=== PATIENT | male | born 1955 | race Caucasian/White ===

== ENCOUNTER 2018-08-01 03:18 | Emergency (ER) | payer MEDICAID ==
[~2018-08-01] VITALS: Ht 180.3 cm; Wt 111.4 kg
[~2018-08-01 03:18] MED LIST: AMLO2.5T4 PO; CLON-527 PO; DIVA125T31 PO; LISI40TA4 PO; METF-436 PO; METH5TAB4 PO; QUET-1 PO; SIMV5TAB58 PO
[2018-08-01 03:22] VITALS: BP 167/107
--- NOTE | 2018-08-01 03:26 | NUR ---
WOUND FLUSHED W/ 600 ML NS, 3 GREGORY PLACED, PT DECLINED LOCAL ANESTHETIC. WOUND WRAPPED W/ GAUZE AND COBAN FOR PRESSURE. COBAN REMOVED BEFORE DISCHARGE. WOUND COVERED W/ GAUZE AND TAPE.
[2018-08-01] MEDS ORDERED: TETanus/Pertussis (Acell)/Diphther VAC/PF (Tdap-Adult) 0.5ml syringe IM ONE (03:35)
== END 2018-08-01 04:23 | disposition home or self-care (01) ==
LOC: EEVIPCON 03:20 → ER 03:20
DX: S51.811A Laceration without foreign body of right forearm, initial encounter (principal); E11.9 Type 2 diabetes mellitus without complications; G89.29 Other chronic pain; F41.9 Anxiety disorder, unspecified; F32.9 Major depressive disorder, single episode, unspecified; F29 Unspecified psychosis not due to a substance or known physiological condition; Z98.890 Other specified postprocedural states; Z79.899 Other long term (current) drug therapy; Z79.84 Long term (current) use of oral hypoglycemic drugs; W26.8XXA Contact with other sharp object(s), not elsewhere classified, initial encounter; Y93.89 Activity, other specified; Y92.488 Other paved roadways as the place of occurrence of the external cause; Y99.8 Other external cause status
CPT/HCPCS: 12002; 90471; 90715; 99283

== ENCOUNTER 2018-12-17 06:56 | Emergency (ER) | payer MEDICAID ==
[~2018-12-17] VITALS: Ht 180.3 cm; Wt 113.6 kg
[2018-12-17 07:12] VITALS: BP 149/89
[2018-12-17] MEDS ORDERED: gentamicin 0.1% topical ointment 15gm TP SCH (07:55)
[2018-12-17] MEDS ORDERED: ALBU18HF2 INH (08:03)
[2018-12-17] MEDS ORDERED: DOXY100C2 PO (08:03)
[2018-12-17] MEDS ORDERED: INHA1INH2 (08:03)
== END 2018-12-17 08:26 | disposition home or self-care (01) ==
LOC: ER 06:57
DX: S90.414A Abrasion, right lesser toe(s), initial encounter (principal); R60.0 Localized edema; B35.1 Tinea unguium; E11.42 Type 2 diabetes mellitus with diabetic polyneuropathy; I48.91 Unspecified atrial fibrillation; I10 Essential (primary) hypertension; G89.29 Other chronic pain; F12.90 Cannabis use, unspecified, uncomplicated; Z98.890 Other specified postprocedural states; Z79.899 Other long term (current) drug therapy; X58.XXXA Exposure to other specified factors, initial encounter; Y93.89 Activity, other specified; Y92.89 Other specified places as the place of occurrence of the external cause; Y99.9 Unspecified external cause status
CPT/HCPCS: 82948; 99283

== ENCOUNTER 2021-09-30 18:08 | Emergency (ER) | payer MEDICAID ==
[~2021-09-30] VITALS: Ht 182.9 cm; Wt 125.0 kg
[~2021-09-30 18:08] MED LIST changes: +AMA1T PO; -AMLO2.5T4 PO; +ATEN-169 PO; +ATI1T PO; -CLON-527 PO; -DIVA125T31 PO; +HYDR-3686 PO; -LISI40TA4 PO; +LYR25C PO; -METF-436 PO; -METH5TAB4 PO; +MIRT-67 PO; +PANT40TA54 PO; +POTA10CA44 PO; -QUET-1 PO; +QUET25TA36 PO; +RIVA20TA PO; +SIMV-341 PO; -SIMV5TAB58 PO; +TRAZ-256 PO; +VERA120T19 PO
[2021-09-30 19:10] LABS: EOSINOPHILS # (AUTO) 0.1 X10'3 (0-0.9); MONOCYTES # (AUTO) 0.5 X10'3 (0-0.9)
[2021-09-30 19:11] LABS: BASOPHILS # (AUTO) 0.1 X10'3 (0-0.2); LYMPHOCYTES # (AUTO) 2.8 X10'3 (1.1-4.8); MEAN CORPUSCULAR HEMOGLOBIN 28.3 PG (27.0-31.0); MEAN CORPUSCULAR HGB CONC 33.4 g/dL (33.0-36.5); NEUTROPHILS # (AUTO) 3.1 X10'3 (1.8-7.7); WHITE BLOOD COUNT 6.6 X10'3 (4.5-11.0)
[2021-09-30 19:24] LABS: ALANINE AMINOTRANSFERASE 26 U/L (12-78); ALBUMIN 3.7 G/DL (3.4-5.0); ALBUMIN/GLOBULIN RATIO 1.1 (1.1-1.5); ALKALINE PHOSPHATASE 69 IU/L (46-116); ANION GAP 15 (8-16); ASPARTATE AMINO TRANSFERASE 27 U/L (10-37); BILIRUBIN,TOTAL 0.8 MG/DL (0.1-1.0); BLOOD UREA NITROGEN 18 MG/DL (7-18); BUN/CREATININE RATIO 12.4 (5.4-32.0); CALCIUM 7.9 MG/DL (8.5-10.1); CHLORIDE 107 MMOL/L (99-107); CREATININE 1.45 MG/DL (0.60-1.10); ETHANOL 0.292 GM/DL (0.0-0.010); GLUCOSE 122 MG/DL (70-104); MAGNESIUM 1.7 MG/DL (1.5-2.4); POTASSIUM 3.7 MMOL/L (3.5-5.1); SODIUM 145 MMOL/L (135-145); TOTAL CARBON DIOXIDE 23.3 MMOL/L (24-32); eGFR 49 ML/MIN
[2021-09-30 19:29] LABS: BASOPHILS % (AUTO) 1.2 % (0-1); EOSINOPHILS % (AUTO) 1.8 % (0-6); HEMATOCRIT 45.8 % (42.0-52.0); HEMOGLOBIN 15.3 g/dl (14.0-17.9); LYMPHOCYTES % (AUTO) 41.9 % (21-51); MEAN CORPUSCULAR VOLUME 84.8 FL (78-98); MONOCYTES % (AUTO) 8.2 % (2-12); NEUTROPHILS % (AUTO) 46.9 % (42-75); PLATELET COUNT 227 X10'3 (140-440)
[2021-09-30 20:41] VITALS: BP 131/81
[2021-09-30] MEDS: diphenhydrAMINE 50 mg/ml inj IV ONE (22:55)
[2021-10-01] MEDS ORDERED: HYDR-3686 PO (19:42)
[2021-10-01] MEDS ORDERED: QUET25TA PO (19:42)
[2021-10-01] MEDS ORDERED: MIRT-88 PO (19:44)
[2021-10-01] MEDS ORDERED: PANT-47 PO (19:56)
[2021-10-01] MEDS ORDERED: SIMV-342 PO (19:56)
[2021-10-01] MEDS ORDERED: RIVA20TA PO (19:56)
[2021-10-01] MEDS ORDERED: VERA180T PO (19:56)
[2021-10-01] MEDS ORDERED: METF-900 PO (19:56)
[2021-10-01] MEDS ORDERED: AMLO5TAB4 PO (19:56)
[2021-10-07] MEDS ORDERED: ESCI5TAB PO (06:40)
== END 2021-09-30 22:56 | disposition home or self-care (01) ==
LOC: ER 18:09
DX: F10.129 Alcohol abuse with intoxication, unspecified (principal); E11.42 Type 2 diabetes mellitus with diabetic polyneuropathy; I48.91 Unspecified atrial fibrillation; I11.0 Hypertensive heart disease with heart failure; I50.9 Heart failure, unspecified; G89.29 Other chronic pain; F41.9 Anxiety disorder, unspecified; F31.9 Bipolar disorder, unspecified; F12.90 Cannabis use, unspecified, uncomplicated; Z98.890 Other specified postprocedural states; Z79.899 Other long term (current) drug therapy; Y90.0 Blood alcohol level of less than 20 mg/100 ml
CPT/HCPCS: 36415; 80053; 80320; 83735; 85025; 96374; 99284; J1200

== ENCOUNTER 2021-10-01 13:14 | Inpatient (IN) | payer MEDICAID ==
[~2021-10-01] VITALS: Ht 365.8 cm; Wt 118.6 kg
[2021-10-01 17:59] LABS: BASOPHILS # (AUTO) 0.1 X10'3 (0-0.2); BASOPHILS % (AUTO) 1.2 % (0-1); EOSINOPHILS % (AUTO) 0.5 % (0-6); HEMATOCRIT 45.7 % (42.0-52.0); HEMOGLOBIN 15.2 g/dl (14.0-17.9); LYMPHOCYTES # (AUTO) 1.6 X10'3 (1.1-4.8); LYMPHOCYTES % (AUTO) 21.5 % (21-51); MEAN CORPUSCULAR HGB CONC 33.3 g/dL (33.0-36.5); MEAN CORPUSCULAR VOLUME 84.3 FL (78-98); MEAN PLATELET VOLUME 8.5 FL (7.4-10.4); MONOCYTES # (AUTO) 0.6 X10'3 (0-0.9); NEUTROPHILS % (AUTO) 68.8 % (42-75); PLATELET COUNT 231 X10'3 (140-440); RED BLOOD COUNT 5.42 X10'6 (4.70-6.10); RED CELL DISTRIBUTION WIDTH 17.5 % (11.5-14.5); WHITE BLOOD COUNT 7.2 X10'3 (4.5-11.0)
[2021-10-01 18:17] LABS: ALANINE AMINOTRANSFERASE 29 U/L (12-78); ALBUMIN 4.4 G/DL (3.4-5.0); ALBUMIN/GLOBULIN RATIO 1.2 (1.1-1.5); ALKALINE PHOSPHATASE 73 IU/L (46-116); ANION GAP 19 (8-16); ASPARTATE AMINO TRANSFERASE 33 U/L (10-37); BILIRUBIN,TOTAL 1.3 MG/DL (0.1-1.0); BLOOD UREA NITROGEN 20 MG/DL (7-18); BUN/CREATININE RATIO 11.4 (5.4-32.0); CALCIUM 8.5 MG/DL (8.5-10.1); CHLORIDE 103 MMOL/L (99-107); CREATININE 1.75 MG/DL (0.60-1.10); GLUCOSE 165 MG/DL (70-104); POTASSIUM 4.2 MMOL/L (3.5-5.1); SODIUM 142 MMOL/L (135-145); TOTAL CARBON DIOXIDE 19.7 MMOL/L (24-32); TOTAL PROTEIN 8.1 G/DL (6.4-8.2); eGFR 39 ML/MIN
[2021-10-01 18:26] LABS: ETHANOL 0.186 GM/DL (0.0-0.010)
--- NOTE | 2021-10-01 18:45 | NUR ---
The patient to bed 25 from the ER lobby for a mental health evaluation. He is yelling out that he wants ativan. His BA is 0.186. He is rambling and unable to stay on topic to answer questions. He reports he is a patient of Dr. Ro.
[2021-10-01 18:48] LABS: URINE AMPHETAMINE SCREEN NEGATIVE (Neg); URINE BARBITUATE SCREEN NEGATIVE (Neg); URINE BENZODIAZEPINES SCREEN NEGATIVE (Neg); URINE CANNABINOID SCREEN NEGATIVE (Neg); URINE COCAINE SCREEN NEGATIVE (Neg); URINE METHADONE SCREEN NEGATIVE (Neg); URINE OPIATE SCREEN NEGATIVE (Neg); URINE PHENCYCLIDINE SCREEN NEGATIVE (Neg)
[2021-10-01] MEDS ORDERED: phenobarbital sod 130mg/ml inj. IV ONE ×3 (18:50→20:25)
[2021-10-01] MEDS ORDERED: ringers solution, lacted 1,000 ML IV ONE ×2 (18:50→22:00)
[2021-10-01] MEDS ORDERED: HYDR-3686 PO (19:42)
[2021-10-01] MEDS ORDERED: QUET25TA PO (19:42)
[2021-10-01] MEDS ORDERED: MIRT-88 PO (19:44)
[2021-10-01] MEDS ORDERED: VERA180T PO (19:56)
[2021-10-01] MEDS ORDERED: RIVA20TA PO (19:56)
[2021-10-01] MEDS ORDERED: AMLO5TAB4 PO (19:56)
[2021-10-01] MEDS ORDERED: SIMV-342 PO (19:56)
[2021-10-01] MEDS ORDERED: METF-900 PO (19:56)
[2021-10-01] MEDS ORDERED: PANT-47 PO (19:56)
--- NOTE | 2021-10-01 19:59 | NUR ---
The patient currently appears to be sleeping
--- NOTE | 2021-10-01 19:59 | NUR ---
FAMILY CONTACTS: DAUGHTER KYLEE [phone] NISHAVILMA ONALASKA [phone]
--- NOTE | 2021-10-01 20:25 | NUR ---
PT WAS MOVED FROM OVERFLOW TO ER BED 14 FOR MONITORING. PT IS TACHYCARDIC AND TREMULOUS
[2021-10-01] MEDS ORDERED: diltiazem 5mg/ml 5ml inj. IV ONE (22:05)
--- NOTE | 2021-10-01 22:23 | NUR ---
PT WAS GIVEN DOSE OF CARDIZEM FOR POSSIBLE RAPID A FIB, 0.25MG/KG IV. PT'S HEART RATE DECREASING.
[2021-10-01] MEDS ORDERED: LORazepam 2 mg/ml vial IV ONE (22:30)
[2021-10-01] MEDS ORDERED: thiamine 100mg/ml 2ml inj. IV ONE (22:55)
--- NOTE | 2021-10-01 23:11 | NUR ---
PT STILL SHAKY AFTER ATIVAN DOSE
--- NOTE | 2021-10-01 23:11 | NUR ---
DR ORTIZ IS IN ROOM SPEAKING WITH PT FOR ADMISSION
[2021-10-01] MEDS ORDERED: potassium CL 10mEq/100ml bag 100 ML IV PRN (23:35)
[2021-10-01] MEDS ORDERED: acetaminophen 325mg tablet PO PRN (23:35)
[2021-10-01] MEDS ORDERED: magnesium hydroxide 30ml (MOM) UD suspension PO PRN (23:35)
[2021-10-01] MEDS ORDERED: POTASSIUM BICARB 20meq eff tab 20 MEQ TABLET.EFF PO PRN ×2 (23:35)
[2021-10-01] MEDS ORDERED: mag hydrox/Alum hydrox/simeth 30ml oral suspension PO PRN (23:35)
[2021-10-01] MEDS ORDERED: magnesium Cl slow-release 64mg tablet PO PRN (23:35)
[2021-10-01] MEDS ORDERED: ondansetron/PF 4mg/2ml inj IV PRN (23:35)
[2021-10-01] MEDS ORDERED: magnesium 4gm in 100ml NS 100 ML IV PRN (23:35)
[2021-10-01] MEDS ORDERED: magnesium 2GM in 50ml NS 50 ML IV PRN (23:35)
[2021-10-02] LABS: MAGNESIUM 1.3 MG/DL (1.5-2.4); POTASSIUM 3.9 MMOL/L (3.5-5.1)
[2021-10-02] MEDS: LORazepam 2 mg/ml vial IV PRN ×6 (00:35→22:16)
[2021-10-02] MEDS: normal saline 1000ml 1,000 ML IV SCH (00:35)
[2021-10-02] MEDS: diltiazem-NS 100mg/100ml 100 ML IV SCH ×2 (00:35→18:31)
--- NOTE | 2021-10-02 01:25 | NUR ---
pt was given 4 mg ativan for agitation, restlessness, still moving on gurney
--- NOTE | 2021-10-02 02:52 | NUR ---
PT NOW DOZING AFTER ATIVAN DOSE AT 0220.
[2021-10-02] MEDS: K and/or MAG REPLACEMENT MC SCH ×2 (03:09→20:00)
--- NOTE | 2021-10-02 04:30 | NUR ---
PT RESTING QUIETLY ON GURNEY, NO LONGER RESTLESS
--- NOTE | 2021-10-02 05:58 | NUR ---
PT APPEARS TO HAVE BRIEF EPISODES OF SLEEP APNEA, SAT 90% ON RA. PT WAS PUT ON O2 AT 2 LPM VIA N/C. PT AWAKENED BRIEFLY DURING NURSING CARE, REMAINS DROWSY.
[2021-10-02 06:59] LABS: BASOPHILS % (AUTO) 0.8 % (0-1); EOSINOPHILS # (AUTO) 0.1 X10'3 (0-0.9); EOSINOPHILS % (AUTO) 2.4 % (0-6); HEMATOCRIT 38.4 % (42.0-52.0); LYMPHOCYTES # (AUTO) 1.1 X10'3 (1.1-4.8); LYMPHOCYTES % (AUTO) 18.6 % (21-51); MEAN CORPUSCULAR HEMOGLOBIN 28.5 PG (27.0-31.0); MEAN CORPUSCULAR HGB CONC 33.9 g/dL (33.0-36.5); MEAN CORPUSCULAR VOLUME 84.1 FL (78-98); MONOCYTES # (AUTO) 0.6 X10'3 (0-0.9); MONOCYTES % (AUTO) 10.4 % (2-12); NEUTROPHILS % (AUTO) 67.8 % (42-75); PLATELET COUNT 149 X10'3 (140-440); RED BLOOD COUNT 4.56 X10'6 (4.70-6.10); RED CELL DISTRIBUTION WIDTH 16.8 % (11.5-14.5); WHITE BLOOD COUNT 5.9 X10'3 (4.5-11.0)
[2021-10-02 07:48] LABS: ALANINE AMINOTRANSFERASE 24 U/L (12-78); ALBUMIN 3.5 G/DL (3.4-5.0); ALBUMIN/GLOBULIN RATIO 1.1 (1.1-1.5); ALKALINE PHOSPHATASE 56 IU/L (46-116); ANION GAP 16 (8-16); ASPARTATE AMINO TRANSFERASE 29 U/L (10-37); BILIRUBIN,TOTAL 2.3 MG/DL (0.1-1.0); BLOOD UREA NITROGEN 14 MG/DL (7-18); BUN/CREATININE RATIO 11.7 (5.4-32.0); CALCIUM 7.9 MG/DL (8.5-10.1); CHLORIDE 103 MMOL/L (99-107); GLUCOSE 99 MG/DL (70-104); MAGNESIUM 2.3 MG/DL (1.5-2.4); POTASSIUM 3.7 MMOL/L (3.5-5.1); SODIUM 142 MMOL/L (135-145); TOTAL CARBON DIOXIDE 23.3 MMOL/L (24-32); TOTAL PROTEIN 6.6 G/DL (6.4-8.2); eGFR 61 ML/MIN
[2021-10-02] MEDS: docusate sod 100mg capsule PO SCH ×2 (08:00→20:00)
[2021-10-02] MEDS: QUEtiapine 25mg tablet PO SCH ×3 (08:56→21:00)
[2021-10-02] MEDS: atenolol 50mg tablet PO SCH (08:56)
[2021-10-02] MEDS: pantoprazole 40mg Tablet.DR PO SCH (08:57)
--- NOTE | 2021-10-02 09:00 | NUR ---
Pt was incont of urine. Assisted pt up to chair, pt dried and placed in clean gown, bed linen changed and pt sat at bedside to eat breakfast tray.
--- NOTE | 2021-10-02 09:36 | NUR ---
Pt ate all of breakfast tray. Pt noted with increasing tremors and HR started trending up to 130s. Pt assited back into bed, medicated with PRN Ativan and HR [id number].
--- NOTE | 2021-10-02 13:20 | NUR ---
PT'S LUNCH TRAY GIVEN. ASSISTED PT OUT OF BED DUE TO HIM SOILING LINENS. PT IS SITTING AT BEDSIDE EATING LUNCH WHILE LINENS WERE CHANGED. HR 113 CURRENTLY PT'S RN NOTIFIED
[2021-10-02 15:35] LABS: HEMOGLOBIN A1C 6.7 % (4.5-6.2)
[2021-10-02] MEDS: rivaroxaban 20mg tablet PO SCH (18:26)
[2021-10-02] MEDS ORDERED: METF-438 PO (19:07)
--- NOTE | 2021-10-02 19:13 | NUR ---
REPORT GIVEN TO BANG MESA, PT IS EATING DINNER, ARELI WELL, NO N/V
[2021-10-02] MEDS: atorvastatin 10mg tablet PO SCH (21:00)
[2021-10-02] MEDS: mirtazapine 15mg tablet PO SCH (21:00)
--- NOTE | 2021-10-02 21:15 | NUR ---
called Dr Goncalves reported heart rate andhold ca stable vital signs verbal order y taken to hold cardizem garett Cary RN
[2021-10-03 06:00] VITALS: BP 136/88
[2021-10-03 06:21] LABS: ALANINE AMINOTRANSFERASE 21 U/L (12-78); ALBUMIN 3.3 G/DL (3.4-5.0); ALBUMIN/GLOBULIN RATIO 1.1 (1.1-1.5); ALKALINE PHOSPHATASE 57 IU/L (46-116); ANION GAP 9 (8-16); ASPARTATE AMINO TRANSFERASE 23 U/L (10-37); BILIRUBIN,TOTAL 1.3 MG/DL (0.1-1.0); BLOOD UREA NITROGEN 17 MG/DL (7-18); BUN/CREATININE RATIO 13.4 (5.4-32.0); CALCIUM 8.1 MG/DL (8.5-10.1); CHLORIDE 107 MMOL/L (99-107); CREATININE 1.27 MG/DL (0.60-1.10); GLUCOSE 159 MG/DL (70-104); MAGNESIUM 2.4 MG/DL (1.5-2.4); POTASSIUM 3.8 MMOL/L (3.5-5.1); SODIUM 143 MMOL/L (135-145); TOTAL CARBON DIOXIDE 26.7 MMOL/L (24-32); TOTAL PROTEIN 6.3 G/DL (6.4-8.2); eGFR 57 ML/MIN
[2021-10-03 06:28] LABS: BASOPHILS % (AUTO) 0.8 % (0-1); EOSINOPHILS # (AUTO) 0.4 X10'3 (0-0.9); EOSINOPHILS % (AUTO) 6.7 % (0-6); HEMATOCRIT 39.6 % (42.0-52.0); HEMOGLOBIN 13.3 g/dl (14.0-17.9); LYMPHOCYTES # (AUTO) 0.9 X10'3 (1.1-4.8); LYMPHOCYTES % (AUTO) 16.4 % (21-51); MEAN CORPUSCULAR HEMOGLOBIN 28.6 PG (27.0-31.0); MEAN CORPUSCULAR HGB CONC 33.5 g/dL (33.0-36.5); MEAN CORPUSCULAR VOLUME 85.3 FL (78-98); MEAN PLATELET VOLUME 8.4 FL (7.4-10.4); MONOCYTES # (AUTO) 0.5 X10'3 (0-0.9); MONOCYTES % (AUTO) 8.4 % (2-12); NEUTROPHILS # (AUTO) 3.8 X10'3 (1.8-7.7); NEUTROPHILS % (AUTO) 67.7 % (42-75); PLATELET COUNT 133 X10'3 (140-440); RED BLOOD COUNT 4.65 X10'6 (4.70-6.10); RED CELL DISTRIBUTION WIDTH 16.9 % (11.5-14.5); WHITE BLOOD COUNT 5.6 X10'3 (4.5-11.0)
[2021-10-03] MEDS: K and/or MAG REPLACEMENT MC SCH ×2 (08:00→20:00)
[2021-10-03] MEDS: QUEtiapine 25mg tablet PO SCH ×3 (08:18→20:04)
[2021-10-03] MEDS: atenolol 50mg tablet PO SCH (08:18)
[2021-10-03] MEDS: docusate sod 100mg capsule PO SCH ×2 (08:18→20:00)
[2021-10-03] MEDS: pantoprazole 40mg Tablet.DR PO SCH (08:19)
[2021-10-03] MEDS: LORazepam 2 mg/ml vial IV PRN ×4 (09:26→20:58)
[2021-10-03 11:00] VITALS: BP 111/66
[2021-10-03 15:00] VITALS: BP_SYST 114; BP_SYST 128; BP_DIAS 66; BP_DIAS 94
--- NOTE | 2021-10-03 15:54 | NUR ---
DM Consult: Pt hx T2DM admit DX SI and etoh receiving routine thiamine per EMR. A1C 6.7% appropriate; DM ed not warranted at this time. Addendum: 10/03/21 at [address] Amended: Links added.
[2021-10-03] MEDS: diltiazem-NS 100mg/100ml 100 ML IV SCH (16:05)
[2021-10-03] MEDS: rivaroxaban 20mg tablet PO SCH (17:09)
[2021-10-03 18:00] VITALS: BP 151/102
[2021-10-03] MEDS: hydrOXYzine 25 MG tablet PO PRN (19:48)
[2021-10-03] MEDS: atorvastatin 10mg tablet PO SCH (20:04)
[2021-10-03] MEDS: mirtazapine 15mg tablet PO SCH (20:04)
[2021-10-03 22:00] VITALS: BP 130/98
[2021-10-03] MEDS: normal saline 1000ml 1,000 ML IV SCH (23:35)
[2021-10-04 02:00] VITALS: BP 142/89
[2021-10-04] MEDS: LORazepam 2 mg/ml vial IV PRN ×4 (03:57→22:51)
[2021-10-04 06:00] VITALS: BP 120/71
[2021-10-04] MEDS: normal saline 1000ml 1,000 ML IV SCH (06:07)
--- NOTE | 2021-10-04 06:35 | NUR ---
1800 Report got from BONITA Dawson. Pt in no acute distress. Pt had mostly uneventful shift coordinator. Sitter remained at bedside. Pt's hr was elevated when he got up to restroom. Came back down once back in bed. 0620 Report given to BONITA Collins. Questions answered. Pt in no acute distress at time of handoff.
[2021-10-04 07:28] LABS: BASOPHILS % (AUTO) 0.5 % (0-1); EOSINOPHILS # (AUTO) 0.4 X10'3 (0-0.9); EOSINOPHILS % (AUTO) 5.9 % (0-6); HEMATOCRIT 39.9 % (42.0-52.0); HEMOGLOBIN 13.3 g/dl (14.0-17.9); LYMPHOCYTES # (AUTO) 1.1 X10'3 (1.1-4.8); LYMPHOCYTES % (AUTO) 18.1 % (21-51); MEAN CORPUSCULAR HEMOGLOBIN 28.4 PG (27.0-31.0); MEAN CORPUSCULAR HGB CONC 33.5 g/dL (33.0-36.5); MEAN CORPUSCULAR VOLUME 84.8 FL (78-98); MEAN PLATELET VOLUME 8.8 FL (7.4-10.4); MONOCYTES # (AUTO) 0.6 X10'3 (0-0.9); MONOCYTES % (AUTO) 9.3 % (2-12); NEUTROPHILS % (AUTO) 66.2 % (42-75); PLATELET COUNT 128 X10'3 (140-440); RED CELL DISTRIBUTION WIDTH 16.8 % (11.5-14.5)
[2021-10-04 07:52] LABS: ALANINE AMINOTRANSFERASE 22 U/L (12-78); ALBUMIN 3.3 G/DL (3.4-5.0); ALKALINE PHOSPHATASE 60 IU/L (46-116); ANION GAP 14 (8-16); ASPARTATE AMINO TRANSFERASE 21 U/L (10-37); BILIRUBIN,TOTAL 0.9 MG/DL (0.1-1.0); BLOOD UREA NITROGEN 15 MG/DL (7-18); CHLORIDE 105 MMOL/L (99-107); CREATININE 1.25 MG/DL (0.60-1.10); GLUCOSE 151 MG/DL (70-104); POTASSIUM 3.5 MMOL/L (3.5-5.1); SODIUM 144 MMOL/L (135-145); TOTAL PROTEIN 6.5 G/DL (6.4-8.2); eGFR 58 ML/MIN
[2021-10-04] MEDS: K and/or MAG REPLACEMENT MC SCH ×2 (08:00→20:00)
[2021-10-04] MEDS: pantoprazole 40mg Tablet.DR PO SCH (08:37)
[2021-10-04] MEDS: QUEtiapine 25mg tablet PO SCH ×3 (08:37→22:40)
[2021-10-04] MEDS: atenolol 50mg tablet PO SCH (08:39)
[2021-10-04] MEDS: docusate sod 100mg capsule PO SCH ×2 (08:40→22:40)
[2021-10-04 11:00] VITALS: BP 122/96
[2021-10-04 15:00] VITALS: BP 145/98
[2021-10-04] MEDS: rivaroxaban 20mg tablet PO SCH (17:36)
[2021-10-04 18:00] VITALS: BP 125/57
--- NOTE | 2021-10-04 18:46 | NUR ---
[id number] MESSAGE: MESSAGE: [id number] Zachariah Taveras Diltiazem drip was stopped yesterday but I see orders for it still. Are you intending to give diltiazem drip or PO? It has been held now for two days. Thank You Karina MESA [phone]
--- NOTE | 2021-10-04 18:55 | NUR ---
pt resting in room no complaints. unable to locate day shift RN to obtain report. Addendum: 10/05/21 at 0239 by Yesika Tapia RN Amended: Links added.
--- NOTE | 2021-10-04 20:00 | NUR ---
day shift RN not here, received a brief report from BONITA garcia. Addendum: 10/05/21 at 0239 by Yesika Tapia RN Amended: Links added.
[2021-10-04 22:00] VITALS: BP 141/90
--- NOTE | 2021-10-04 22:00 | NUR ---
Pt is calm and cooperative, pleasant. denies any suicidal ideation at this time. States did not want to harm himself but wanting to hurt others who had "ripped him off" pt complains about medications not working as well as they use too. Pt aware getting a social service consult in morning. Addendum: 10/05/21 at 0300 by Yesika Tapia RN Amended: Links added.
[2021-10-04] MEDS: mirtazapine 15mg tablet PO SCH (22:40)
[2021-10-04] MEDS: hydrOXYzine 25 MG tablet PO PRN (22:40)
[2021-10-04] MEDS: atorvastatin 10mg tablet PO SCH (22:41)
[2021-10-05 02:00] VITALS: BP 140/89
--- NOTE | 2021-10-05 02:14 | NUR ---
cpap is on, per rt pt had 1 to 8 second of apnea. sat is 96% on r/a Addendum: 10/05/21 at 0215 by Yesika Tapia RN Amended: Links added.
[2021-10-05] MEDS: LORazepam 2 mg/ml vial IV PRN ×5 (04:14→22:09)
--- NOTE | 2021-10-05 04:20 | NUR ---
ATIVAN GIVEN FOR ANXIETY. CPAP OFF. PT STATES RELIEF. SITTER AT BEDSIDE. Addendum: 10/05/21 at 0445 by Yesika Tapia RN Amended: Links added.
[2021-10-05 06:00] VITALS: BP 140/98
--- NOTE | 2021-10-05 06:06 | NUR ---
NO CHANGE, INC GREEN BLACK STOOL, RACHEAL CARE GIVEN VSS. Addendum: 10/05/21 at 0606 by Yesika Tapia RN Amended: Links added. Addendum: 10/05/21 at 0609 by Yesika Tapia RN DISREGARD NOTE, WRONG PT
--- NOTE | 2021-10-05 07:17 | NUR ---
Problems reprioritized. Patient report given, questions answered & plan of care reviewed with BONITA CORNELIUS. Addendum: 10/05/21 at 0717 by Yesika Tapia RN Amended: Links added.
[2021-10-05 07:44] LABS: BASOPHILS % (AUTO) 0.3 % (0-1); EOSINOPHILS # (AUTO) 0.3 X10'3 (0-0.9); EOSINOPHILS % (AUTO) 3.2 % (0-6); HEMATOCRIT 43.3 % (42.0-52.0); HEMOGLOBIN 14.4 g/dl (14.0-17.9); LYMPHOCYTES # (AUTO) 1.8 X10'3 (1.1-4.8); LYMPHOCYTES % (AUTO) 21.6 % (21-51); MEAN CORPUSCULAR HEMOGLOBIN 28.7 PG (27.0-31.0); MEAN CORPUSCULAR HGB CONC 33.3 g/dL (33.0-36.5); MEAN CORPUSCULAR VOLUME 86.1 FL (78-98); MEAN PLATELET VOLUME 8.7 FL (7.4-10.4); MONOCYTES # (AUTO) 0.8 X10'3 (0-0.9); MONOCYTES % (AUTO) 9.5 % (2-12); NEUTROPHILS # (AUTO) 5.4 X10'3 (1.8-7.7); NEUTROPHILS % (AUTO) 65.4 % (42-75); PLATELET COUNT 149 X10'3 (140-440); RED BLOOD COUNT 5.04 X10'6 (4.70-6.10); RED CELL DISTRIBUTION WIDTH 16.4 % (11.5-14.5); WHITE BLOOD COUNT 8.2 X10'3 (4.5-11.0)
[2021-10-05] MEDS: K and/or MAG REPLACEMENT MC SCH ×2 (08:00→20:00)
[2021-10-05 08:34] LABS: ALANINE AMINOTRANSFERASE 22 U/L (12-78); ALBUMIN 3.7 G/DL (3.4-5.0); ALKALINE PHOSPHATASE 71 IU/L (46-116); ANION GAP 15 (8-16); ASPARTATE AMINO TRANSFERASE 20 U/L (10-37); BILIRUBIN,TOTAL 0.8 MG/DL (0.1-1.0); BLOOD UREA NITROGEN 15 MG/DL (7-18); BUN/CREATININE RATIO 10.7 (5.4-32.0); CALCIUM 8.7 MG/DL (8.5-10.1); CHLORIDE 105 MMOL/L (99-107); GLUCOSE 171 MG/DL (70-104); POTASSIUM 3.9 MMOL/L (3.5-5.1); SODIUM 145 MMOL/L (135-145); TOTAL PROTEIN 7.4 G/DL (6.4-8.2); eGFR 51 ML/MIN
[2021-10-05] MEDS: pantoprazole 40mg Tablet.DR PO SCH (09:00)
[2021-10-05] MEDS: QUEtiapine 25mg tablet PO SCH ×3 (09:00→22:08)
[2021-10-05] MEDS: docusate sod 100mg capsule PO SCH ×2 (09:01→17:31)
[2021-10-05] MEDS: atenolol 50mg tablet PO SCH (09:01)
--- NOTE | 2021-10-05 09:24 | NUR ---
Initial: Pt admitted w/ acute alcohol intoxication with alcohol withdrawal syndrome and SI per EMR. Currently on Carb control diet w/ mostly 100% intake of meals. Will provide double protein BID for satiety. Noted current ht 144in though pt 72in on previous admits making BMI 35. LBM 10/04 receiving routine colace. Will continue to monitor. Recs: 1. Continue Carb control diet as tolerated 2. Double protein BID 3. Bowel care per rx 4. Weekly wts Addendum: 10/05/21 at [address] Amended: Links added.
[2021-10-05 11:00] VITALS: BP 134/92
[2021-10-05 15:00] VITALS: BP 144/92
[2021-10-05] MEDS: rivaroxaban 20mg tablet PO SCH (16:20)
--- NOTE | 2021-10-05 17:27 | NUR ---
Attention mental health. Watch for Mental Health hold, with placement. Pt. has been assessed.
[2021-10-05 18:00] VITALS: BP 152/81
--- NOTE | 2021-10-05 18:26 | NUR ---
sitter in room, pt resting with eyes closed rr wnl. no complaints Addendum: 10/05/21 at 1940 by Yesika Tapia RN Amended: Links added.
--- NOTE | 2021-10-05 18:40 | NUR ---
Patient in room U 3028. I have received report from BONIAT Collins and had the opportunity to ask questions and assume patient care. Addendum: 10/05/21 at 1941 by Yesika Tapia RN Amended: Links added.
--- NOTE | 2021-10-05 19:55 | NUR ---
ATIVAN GIVEN PER PT REQUEST. PT STATE DOES NOT WANT TO HURT HIMSELF OR ANYONE BUT CANNOT HELP HIS THOUGHTS WOULD NOT EXPLAIN FURTHER PT CALM. WANTED SHOWER, BUT STATES PASSES OUT, REQSTED "BUCKET TO WASH UP AT BEDSIDE. Addendum: 10/05/21 at 1956 by Yesika Tapia RN Amended: Links added.
--- NOTE | 2021-10-05 20:02 | NUR ---
PT STATES CANNOT EXPLAIN HOW HE FEELS. DOES NOT WANT TO DARRICK OTHERS PT STATES. BUT DOES HAVE THOUGHT. NONE OF HURTING SELF AT THIS TIME. NO PLANVGIVEN. Addendum: 10/05/21 at 2004 by Yesika Tapia RN Amended: Links added.
[2021-10-05] MEDS: mirtazapine 15mg tablet PO SCH (22:08)
[2021-10-05] MEDS: atorvastatin 10mg tablet PO SCH (22:09)
[2021-10-05 22:16] VITALS: BP 134/83
[2021-10-05] MEDS: normal saline 1000ml 1,000 ML IV SCH (23:35)
[2021-10-06 02:00] VITALS: BP 138/86
[2021-10-06 06:00] VITALS: BP 146/102
--- NOTE | 2021-10-06 06:32 | NUR ---
Problems reprioritized. Patient report given, questions answered & plan of care reviewed with RN. Addendum: 10/06/21 at 0633 by Yesika Tapia RN Amended: Links added.
[2021-10-06 06:51] LABS: BASOPHILS % (AUTO) 0.7 % (0-1); EOSINOPHILS # (AUTO) 0.3 X10'3 (0-0.9); EOSINOPHILS % (AUTO) 4.2 % (0-6); HEMATOCRIT 41.8 % (42.0-52.0); HEMOGLOBIN 14.2 g/dl (14.0-17.9); LYMPHOCYTES # (AUTO) 1.4 X10'3 (1.1-4.8); LYMPHOCYTES % (AUTO) 21.6 % (21-51); MEAN CORPUSCULAR HEMOGLOBIN 29.1 PG (27.0-31.0); MEAN CORPUSCULAR VOLUME 85.6 FL (78-98); MEAN PLATELET VOLUME 8.4 FL (7.4-10.4); MONOCYTES # (AUTO) 0.8 X10'3 (0-0.9); MONOCYTES % (AUTO) 12.8 % (2-12); NEUTROPHILS # (AUTO) 3.9 X10'3 (1.8-7.7); NEUTROPHILS % (AUTO) 60.7 % (42-75); PLATELET COUNT 139 X10'3 (140-440); RED BLOOD COUNT 4.88 X10'6 (4.70-6.10); RED CELL DISTRIBUTION WIDTH 16.4 % (11.5-14.5); WHITE BLOOD COUNT 6.5 X10'3 (4.5-11.0)
[2021-10-06 06:57] LABS: ALANINE AMINOTRANSFERASE 19 U/L (12-78); ALBUMIN 3.5 G/DL (3.4-5.0); ALBUMIN/GLOBULIN RATIO 0.9 (1.1-1.5); ALKALINE PHOSPHATASE 71 IU/L (46-116); ANION GAP 12 (8-16); ASPARTATE AMINO TRANSFERASE 16 U/L (10-37); BILIRUBIN,TOTAL 0.8 MG/DL (0.1-1.0); BLOOD UREA NITROGEN 13 MG/DL (7-18); BUN/CREATININE RATIO 9.8 (5.4-32.0); CALCIUM 8.8 MG/DL (8.5-10.1); CHLORIDE 105 MMOL/L (99-107); CREATININE 1.32 MG/DL (0.60-1.10); GLUCOSE 165 MG/DL (70-104); POTASSIUM 3.8 MMOL/L (3.5-5.1); SODIUM 144 MMOL/L (135-145); TOTAL CARBON DIOXIDE 27.3 MMOL/L (24-32); TOTAL PROTEIN 7.3 G/DL (6.4-8.2); eGFR 54 ML/MIN
[2021-10-06] MEDS: K and/or MAG REPLACEMENT MC SCH (08:00)
[2021-10-06] MEDS ORDERED: thiamine 100mg tablet PO SCH (08:00)
[2021-10-06] MEDS: docusate sod 100mg capsule PO SCH (08:33)
[2021-10-06] MEDS: QUEtiapine 25mg tablet PO SCH ×2 (08:33→13:48)
[2021-10-06] MEDS: atenolol 50mg tablet PO SCH (08:33)
[2021-10-06] MEDS: pantoprazole 40mg Tablet.DR PO SCH (08:33)
[2021-10-06 11:00] VITALS: BP 151/104
--- NOTE | 2021-10-06 14:02 | NUR ---
Patient cleared for transfer to [facility]. Report given to Ernie MESA. Patient aox4, vitals stable, denies pain. IV discontinued.
[2021-10-06] MEDS ORDERED: DOCU-148 PO (15:14)
[2021-10-06] MEDS ORDERED: THIA100T66 PO (15:14)
[2021-10-07] MEDS ORDERED: ESCI5TAB PO (06:40)
== END 2021-10-06 14:03 | DRG 201 ==
LOC: ER 13:14 → ED HOLD 23:36 → PCU 3S 10-02 19:30
PROVIDERS: ADMIT Internal Medicine; ATTEND Family Medicine
PROC: 5A09357 Assistance with Respiratory Ventilation, Less than 24 Consecutive Hours, Continuous Positive Airway Pressure (ICD-10-PCS; principal; 2021-10-02)
PROC: 5A09357 Assistance with Respiratory Ventilation, Less than 24 Consecutive Hours, Continuous Positive Airway Pressure (ICD-10-PCS; 2021-10-03)
PROC: 5A09357 Assistance with Respiratory Ventilation, Less than 24 Consecutive Hours, Continuous Positive Airway Pressure (ICD-10-PCS; 2021-10-04)
PROC: 5A09357 Assistance with Respiratory Ventilation, Less than 24 Consecutive Hours, Continuous Positive Airway Pressure (ICD-10-PCS; 2021-10-05)
DX: I48.91 Unspecified atrial fibrillation (principal); R45.851 Suicidal ideations; E11.42 Type 2 diabetes mellitus with diabetic polyneuropathy; I50.9 Heart failure, unspecified; I11.0 Hypertensive heart disease with heart failure; Z20.822 Contact with and (suspected) exposure to COVID-19; F10.229 Alcohol dependence with intoxication, unspecified; F10.239 Alcohol dependence with withdrawal, unspecified; F31.9 Bipolar disorder, unspecified; F41.9 Anxiety disorder, unspecified; G47.33 Obstructive sleep apnea (adult) (pediatric); G89.29 Other chronic pain; M54.9 Dorsalgia, unspecified; Z91.14 Patient's other noncompliance with medication regimen; Z79.899 Other long term (current) drug therapy
CPT/HCPCS: 36415; 80053; 80305; 80320; 82948; 83036; 83735; 84132; 84443; 85025; 87081; 87811; 93005; 94660; 94760; 99285; A4615; G0378; J2060; J2560; J3411; J3475; J3490; J7030; J7120; Q0177